=== PATIENT | male | born 1970 | race Caucasian/White ===

== ENCOUNTER 2017-07-24 17:02 | Emergency (ER) | payer MEDICAID, OTHER ==
[~2017-07-24] VITALS: Ht 182.9 cm; Wt 130.0 kg
[2017-07-24 17:03] VITALS: BP 130/80; PULSE 74; RESP 12; TEMP 98.1; O2SAT 97
[2017-07-24] MEDS ORDERED: WALKER/ADULT/FO1 MIS (18:06)
--- NOTE | 2017-07-24 18:06 | PD ---
HPI Chief Complaint: Pain: Acute or Chronic Time Seen by Provider: 18:04 Travel History International Travel<30 days: No Contact w/Intl Traveler<30days: No Traveled to known affect area: No History of Present Illness HPI 47-year-old male presents to the emergency Department with complaint of right knee pain times one to one and a half months with worsening the last 2 weeks. Denies new or recent injury. Says he can't even bear weight on his right leg most of the time. He was able to ambulate into the ER. Said he was seen a month ago and had an x-ray of the right knee and was told there was something sitting on his meniscus. Denies paresthesias, loss of sensation to the affected extremity. Denies fever, vomiting. Reports decreased flexion of the right knee. Pain is is worse with flexion of the knee and ambulation. Has been taking Tylenol for symptom management. Symptoms are moderate in severity. Has no other medical complaints. No other modifying factors or associated signs and symptoms. PFSH Past Medical History Respiratory: Yes Social History Tobacco Use: No Allergies-Medications Reported Meds & Prescriptions Reported Meds & Active Scripts Active Walker/Adult/Folding (Device) 1 Mis Mis Ea .ROUTE DIRECTED Review of Systems Except as stated in HPI: all other systems reviewed are Neg Physical Exam Narrative GENERAL: Well-nourished, well-developed male patient, in no acute distress; afebrile, nontoxic-appearing SKIN: Warm and dry. HEAD: Atraumatic. Normocephalic. EYES: Pupils equal and round. No scleral icterus. No injection or drainage. ENT: Mucosa pink and moist. Airway patent. NECK: Trachea midline. CARDIOVASCULAR: Regular rate. RESPIRATORY: No accessory muscle use. GASTROINTESTINAL: Obese. MUSCULOSKELETAL: Right knee is nonedematous, nonerythematous, and without ecchymosis; with full range of motion and flexion to 90; point tenderness to the lateral aspect; joint stable with negative drawer test; no obvious deformity. Right lower extremity supple and non-tense with 2+ pedal pulse and sensory intact without erythema or edema. Ambulatory in the yuan with a limp to the right lower extremity. NEUROLOGICAL: Awake and alert. Oriented 3. No obvious cranial nerve deficits. Motor grossly within normal limits. Normal speech. PSYCHIATRIC: Appropriate mood and affect; insight and judgment normal. Data Data Last Documented VS Vital Signs Date Time Temp Pulse Resp B/P (MAP) Pulse Ox O2 Delivery O2 Flow Rate FiO2 07/24/17 17:03 98.1 74 12 130/80 (97) 97 Orders Orders Splint Or Brace Apply/Monitor (07/24/17 18:07) Crutches (07/24/17 18:07) Ed Discharge Order (07/24/17 18:07) MDM Medical Decision Making Medical Screen Exam Complete: Yes Emergency Medical Condition: Yes Medical Record Reviewed: Yes Differential Diagnosis Arthritis, meniscal tear, bursitis, less likely septic joint, fracture, dislocation Narrative Course 47-year-old male with right knee pain. Had a previous x-ray approximately one month ago. Denies new or recent injury. I don't suspect fracture or dislocation and feel that reimaging at this time is necessary. Patient provided Endy bandage and crutches for support. Prescription for walker provided. Instructed patient to follow up with orthopedics and to obtain outpatient MRI. Patient provided information for [facility] for follow-up. Instructed patient to follow up with primary care provider. Patient verbalizes understanding and agreement with treatment plan. Patient is medically cleared and stable for discharge. Discussed reasons to return to the emergency department. Patient agrees with treatment plan. The patients vital signs are stable and the patient is stable for outpatient follow-up and treatment. Patient discharged home, stable and in no acute distress. Diagnosis Primary Impression: Right knee pain Qualified Codes: M25.561 - Pain in right knee Referrals: [facility] Orthopaedic Surgeon Primary Care Physician Patient Instructions: General Instructions, Knee Pain (ED) Additional Instructions: Tylenol or ibuprofen as needed and as directed to reduce pain and inflammation Rest, ice, compress, and elevate extremity to decrease pain and inflammation Knee brace for support Crutches, cane, walker for support Avoid aggravating activity; increase activity as tolerated Follow-up with primary care provider; information for [facility] is provided a discharge instruction; call and make an appointment for follow-up Follow-up with orthopedics Return to the emergency department immediately with worsening symptoms Med/Other Pt SpecificInfo: Prescription(s) given Scripts Walker/Adult/Folding (Walker/Adult/Folding) 1 Mis Mis EA .ROUTE DIRECTED, #1 0 Refills Prov: Donna Lyles 07/24/17 Disposition: 01 DISCHARGE HOME Condition: Stable Donna Lyles Jul 24, 2017 18:06
== END 2017-07-24 18:22 | disposition home or self-care (01) ==
LOC: NEPK 17:02
DX: M25.561 Pain in right knee (principal)
CPT/HCPCS: 99282; E0113